=== PATIENT | female | born 1970 | race Caucasian/White ===

== ENCOUNTER → 2020-03-10 | Outpatient (CLI) | payer OTHER ==
[~2020-03-10] MED LIST: CETI-158 PO; FLUT15.815 NAS
[2020-03-10 14:38] LABS: BASOPHILS # (AUTO) 0.04 x10^3/uL (0-0.1); BASOPHILS % (AUTO) 1 % (0-1); EOSINOPHILS # (AUTO) 0.09 x10^3/uL (0-0.4); EOSINOPHILS % (AUTO) 1 % (1-7); LYMPHOCYTES # (AUTO) 1.74 x10^3/uL (1-3.4); LYMPHOCYTES % (AUTO) 28 % (22-44); MD NO; MEAN CORPUSCULAR HEMOGLOBIN 29.7 pg (27.0-34.8); MEAN CORPUSCULAR HGB CONC 33.2 g/dL (32.4-35.8); MEAN CORPUSCULAR VOLUME 89.5 fL (80-100); MONOCYTES # (AUTO) 0.56 x10^3/uL (0.2-0.8); MONOCYTES % (AUTO) 9 % (2-9); NEUTROPHILS # (AUTO) 3.84 x10^3/uL (1.8-6.8); NEUTROPHILS % (AUTO) 61 % (42-75); PLATELET COUNT 292 x10^3/uL (130-400); RED BLOOD COUNT 4.39 x10^6/uL (3.82-5.3)
[2020-03-10 14:44] LABS: ALANINE AMINOTRANSFERASE 20 U/L (12-78); ALBUMIN 3.6 g/dL (3.4-5.0); ANION GAP 6 mmol/L (5-15); CALCIUM 8.6 mg/dL (8.5-10.1); CHLORIDE 110 mmol/L (98-107); CREATININE 0.85 mg/dL (0.55-1.02)
[2020-03-10 14:46] LABS: ALKALINE PHOSPHATASE 86 U/L (45-117); BILIRUBIN,TOTAL 0.4 mg/dL (0.2-1.0); TOTAL PROTEIN 8.1 g/dL (6.4-8.2)
[2020-03-10 14:48] LABS: INTERNATIONAL NORMALIZED RATIO 0.93 (0.93-1.1); PROTHROMBIN TIME 9.9 Seconds (9.6-11.5)
== END | disposition home or self-care (01) ==
LOC: STAR 13:35
PROVIDERS: ATTEND Orthopaedic Surgery
DX: Z01.818 Encounter for other preprocedural examination (principal); M16.11 Unilateral primary osteoarthritis, right hip
CPT/HCPCS: 36415; 80053; 83036; 85025; 85610; 85730; 87081; 93005

== ENCOUNTER 2020-03-16 07:07 | Day surgery (SDC) | payer OTHER ==
[~2020-03-16] VITALS: Ht 160 cm; Wt 82.0 kg
[2020-03-16] MEDS ORDERED: KETOROLAC 60 MG/2 ML ONE (07:25)
[2020-03-16 07:26] VITALS: BP 136/95
[2020-03-16] MEDS ORDERED: TRANEXAMIC ACID 100 MG/ML, 10ML ONE ×2 (07:26)
[2020-03-16] MEDS ORDERED: VANCOMYCIN 1,000 MG ONE (07:26)
[2020-03-16] MEDS ORDERED: EPINEPHRINE 1 MG/ML, 1ML ONE (07:26)
[2020-03-16] MEDS ORDERED: SODIUM CHLORIDE 0.9% 100 ML ONE (07:26)
[2020-03-16] MEDS ORDERED: ROPIvacaine/PF 0.5%, 30 ML ONE (07:26)
[2020-03-16] MEDS ORDERED: CHLORHEXIDINE 15 ML UDC MM ONE (07:30)
[2020-03-16] MEDS ORDERED: CHLORHEXIDINE 15 ML UDC ONE (07:33)
[2020-03-16] MEDS ORDERED: ACETAMINOPHEN 500 MG TABLET ONE (07:33)
[2020-03-16] MEDS ORDERED: GABAPENTIN 300 MG CAPSULE ONE (07:33)
[2020-03-16] MEDS ORDERED: GABAPENTIN 300 MG CAPSULE PO ONE (08:00)
[2020-03-16] MEDS ORDERED: ACETAMINOPHEN 500 MG TABLET PO ONE (08:00)
[2020-03-16] MEDS ORDERED: LACTATED RINGERS 1,000 ML IV SCH (08:00)
[2020-03-16] MEDS: NS + 20MEQ KCL 1,000 ML IV SCH ×2 (08:09→16:51)
[2020-03-16] MEDS ORDERED: SCOPOLAMINE 1MG PATCH TD ONE (08:19)
[2020-03-16] MEDS ORDERED: ACETAMINOPHEN 650 MG/20.3 ML UDC PO PRN (08:30)
[2020-03-16] MEDS ORDERED: HYDROmorphone 1 MG/ML, 1ML INJ IVPush PRN (08:30)
[2020-03-16] MEDS ORDERED: OXYcodone 5 MG/5 ML ORAL.SOL UDC PO PRN (08:30)
[2020-03-16] MEDS ORDERED: PROMETHAZINE 25 MG/ML, 1ML IVPush PRN (08:30)
[2020-03-16] MEDS ORDERED: HYDROcodone/APAP 5/325 TABLET PO PRN (08:30)
[2020-03-16] MEDS ORDERED: LABETALOL 5MG/ML, 20ML IV PRN (08:30)
[2020-03-16] MEDS ORDERED: ONDANSETRON 4 MG TABLET PO PRN (08:30)
[2020-03-16] MEDS ORDERED: OXYcodone IR 5MG TABLET PO PRN (08:30)
[2020-03-16] MEDS ORDERED: BISACODYL 10 MG SUPP PR PRN (08:30)
[2020-03-16] MEDS ORDERED: CEFAZOLIN PMX 2GM/50ML 50 ML IVPB SCH (08:30)
[2020-03-16] MEDS ORDERED: morphine SULFATE 10 MG/ML, 1ML IVPush PRN (08:30)
[2020-03-16] MEDS ORDERED: hydrALAzine 20 MG/ML, 1ML IV PRN (08:30)
[2020-03-16] MEDS ORDERED: DIPHENHYDRAMINE 25 MG CAPSULE PO PRN (08:30)
[2020-03-16] MEDS ORDERED: MEPERIDINE/PF 25MG/0.5ML IVPush PRN (08:30)
[2020-03-16] MEDS ORDERED: MAGNESIUM HYDROXIDE 8%, 30ML UDC PO PRN (08:30)
[2020-03-16] MEDS ORDERED: FENTANYL PF 100 MCG/2ML IV PRN (08:30)
[2020-03-16] MEDS ORDERED: ZOLPIDEM 5MG TABLET PO PRN (08:30)
[2020-03-16] MEDS ORDERED: SENNA/DOCUSATE TABLET PO PRN (08:30)
[2020-03-16] MEDS ORDERED: HALOPERIDOL 5 MG/ML IV PRN (08:30)
[2020-03-16] MEDS ORDERED: ONDANSETRON 2MG/ML, 2ML IV PRN (08:30)
[2020-03-16] MEDS ORDERED: VANCOMYCIN 1,000 MG IM ONE (08:54)
[2020-03-16] MEDS ORDERED: ROPIvacaine/PF 0.5%, 30 ML INFIL ONE (08:54)
[2020-03-16] MEDS ORDERED: EPINEPHRINE 1 MG/ML, 1ML INFIL ONE (08:54)
[2020-03-16] MEDS ORDERED: KETOROLAC 30 MG/1 ML IM/IV ONE (08:54)
[2020-03-16] MEDS: CETIRIZINE 10 MG TABLET PO SCH (09:00)
[2020-03-16] MEDS: DOCUSATE 100 MG CAPSULE PO SCH ×2 (09:00→20:03)
[2020-03-16] MEDS ORDERED: OXYcodone 5 MG/5 ML ORAL.SOL UDC ONE (10:08)
[2020-03-16] MEDS: FLUTICASONE NASAL SPRAY 16GM NAS SCH ×2 (11:30→20:32)
[2020-03-16 13:47] VITALS: BP 123/88
[2020-03-16] MEDS ORDERED: OXYC5CAP2 PO (14:33)
[2020-03-16] MEDS ORDERED: TRAM50TA2 PO (14:34)
[2020-03-16] MEDS ORDERED: MELO7.5T5 PO (14:34)
[2020-03-16] MEDS: CEFAZOLIN PMX 2GM/50ML 50 ML IVPB SCH (16:59)
[2020-03-16] MEDS: ASPIRIN 81 MG TABLET EC PO SCH (17:32)
[2020-03-16] MEDS ORDERED: SODIUM CHLORIDE 0.9% 500 ML IV SCH (18:30)
[2020-03-16 19:28] VITALS: BP 125/71
[2020-03-17] VITALS (8 sets, daily range): BP systolic 91–115; BP diastolic 61–78
[2020-03-17] MEDS: CEFAZOLIN PMX 2GM/50ML 50 ML IVPB SCH (01:25)
[2020-03-17] MEDS: ASPIRIN 81 MG TABLET EC PO SCH (05:50)
[2020-03-17] MEDS ORDERED: DEXAMETHASONE 4 MG/ML, 1ML IVPush SCH (06:00)
[2020-03-17] MEDS: DOCUSATE 100 MG CAPSULE PO SCH (08:48)
[2020-03-17] MEDS: CETIRIZINE 10 MG TABLET PO SCH (08:48)
[2020-03-17] MEDS: FLUTICASONE NASAL SPRAY 16GM NAS SCH (08:48)
[2020-03-17] MEDS: NS + 20MEQ KCL 1,000 ML IV SCH (08:49)
== END 2020-03-17 11:55 | disposition home or self-care (01) ==
LOC: OUT 07:07 → 4NE 08:00 → OUT 20:13
PROVIDERS: ADMIT Orthopaedic Surgery; ATTEND Orthopaedic Surgery
DX: M16.11 Unilateral primary osteoarthritis, right hip (principal); D64.9 Anemia, unspecified; Z79.899 Other long term (current) drug therapy
CPT/HCPCS: 27130; 36415; 72170; 73501; 76000; 81025; 85014; 85018; 96365; 96366; 96375; 97116; 97161; 97165; 97530; C1713; C1776; G0378; J0171; J0690; J1100; J1885; J2250; J2405; J2704; J2710; J2795; J3010; J3370; J3480; J7040; J7120